=== PATIENT | male | born 1945 | race Caucasian/White ===

== ENCOUNTER 2025-05-04 15:51 | Outpatient (AMB) | payer MEDICARE, MEDICAID, SELFPAY ==
--- NOTE | 2025-05-04 15:51 | A.OFFVIS_ITS ---
Intake Visit Reasons: 7M/MCI HPI Comments Details: He has stable memory problems. Occasionally he forgets his diapers and forgets to change. Both he and his live with their daughter in [place]. Needs more help. In the last 24 months he's been noted to have progressive decline in his cognitive abilities particularly short-term memory and his personal hygiene has deteriorated somewhat and sometimes he is delusional making up stories about simple commands. His remote memory appears to be intact. He stays on most of the time and gets around with a cane. He has had no falls. He has the some bladder urgency related to prostate problem and wears an adult diapers at night. There has been some personality changes noted as well. There is no agitation or abusive behavior. Review of Systems Const Details: ?Sleep:? Difficulty getting to sleep?admits.? Difficulty maintaining sleep?admits.? Urge to move legs?denies.? Teeth grinding?denies.? Shouting or Kicking during sleep?denies.? Abnormal behavior during sleep?denies.? Excessive sleep? denies.? Snoring?admits.? Daytime sleepiness?denies.?General/Constitutional:? Change in appetite?denies.? Chills?denies.? Fatigue?denies.? Fever?denies.? Weight gain?denies.? Weight loss?denies.?Ophthalmologic:? Blurred vision?denies.? Diminished visual acuity?denies.?ENT:? Stuffiness?denies.? Decreased hearing?admits.? Dry mouth?denies.? Ear pain? denies.? Nosebleed?denies.? Ringing in the ears?denies.? Sinus pain?denies.? Sore throat?denies.? Swollen glands?denies.?Endocrine:? Cold intolerance?denies.? Excessive thirst?denies.? Frequent urination? denies.? Heat intolerance?denies.?Respiratory:? Shortness of breath?denies.? Chest pain?denies.? Cough?denies.?Breast:? Breast lump?denies.? Nipple discharge?denies.?Cardiovascular:? Chest pain at rest?denies.? Chest pain with exertion?denies.? Claudication? denies.? Dizziness?denies.? Fluid accumulation in the legs?denies.? Irregular heartbeat?denies.? Palpitations?denies.?Gastrointestinal:? Abdominal pain?denies.? Constipation?denies.? Diarrhea?denies.? Difficulty swallowing?denies.? Heartburn?denies.? Nausea?denies.? Rectal bleeding? denies.?Hematology:? Easy bruising?denies.? Prolonged bleeding?denies.?Genitourinary:? Frequent urination?denies.? Urgency?denies.? Incontinence?admits.? Erectile Dysfunction?denies.?Musculoskeletal:? Neck pain?denies.? Back pain?admits.? Muscle aches?admits.? Painful joints? admits.? Sciatica?denies.? Weakness?denies.?Podiatric:? Difficulty walking?denies.? Foot numbness?denies.?Neurologic:? Difficulty swallowing?denies.? Balance difficulty?denies.? Coordination? normal.? Difficulty speaking?denies.? Dizziness?denies.? Fainting?denies.? Gait abnormality?denies.? Headache?denies.? Loss of strength?denies.? Loss of use of extremity?denies.? Low back pain?denies.? Memory loss?admits.? Seizures?denies.? Tics?denies.? Tingling/Numbness?denies.? Transient loss of vision?denies.? Tremor?denies.?Psychiatric:? Anxiety?admits.? Auditory/visual hallucinations?denies.? Delusions?admits.? Depressed mood?admits.? Stressors?admits.? Substance abuse?denies.? Suicidal thoughts?denies.? Physical Exam Neuro Other: Neurological: Abnormal neurological findings:??MMS .? Mental Status:??alert and oriented X 1. Does not know city or state.does not know day date, month or year..? Cranial Nerves:??Pupils are equal, round and reactive to light. Fundoscopy shows normal disc bilaterally. External occular muscles are intact. Visual olivares are full, no ptosis. Face is symmetrical, no facial weakness or droop. Facial sensations are normal. Tongue protrudes in midline. Palate elevates symmetrically. Shoulder shrugging is normal..? Motor Examination:??Normal muscle tone, bulk and strength,?No atrophy or fasciculations,?No drift of the extended upper extremities,?Deep tendon reflexes are 2+?,?Plantars are flexor?.? Straight Leg Raising:??90 degrees.? Sensory Exam:??Normal light touch, temperature, pinprick, vibration and joint-position sensations?,?Rhomberg sign is absent.? Coordination:??no ataxia,?no titubation,?[id number], [id number] test and rapid alternating movements were normal.? Gait Exam:??Walks with a cane.? Cerebellar Signs:??[id number] and ghjr-lp-iice is normal,?no dysdiadochokinesia?.? Extrapyramidal System:??No tremor, rigidity with normal facial expressions,?No bradykinesia, no bradyphrenia. Normal arm swing and posture. No propulsion or retropulsion.? Speech:??Normal,?no dysphasia or dysarthria..?Mini Mental Status Exam: Level of Consciousness:??Alert.? Orientation:??Does not Know correct year, month, date, day and season, or?correct city, county and state.?.? Registration:??Able to register 3 objects.? Attention:??Serial 7's performed accurately to 93.? Recall:??Able to recall 0 out of 3 objects.? Language:??Normal spontaneous speech, fluency, repetition,naming, comprehension, reading and writing.? Total Score:??23/30.?General Examination: GENERAL APPEARANCE:??normal,?in no acute distress.? HEAD:??normocephalic,?atraumatic.? EYES:??sclera non-icteric,?conjunctiva clear.? EARS:??auditory canal clear,?tympanic membrane intact, clear.? NOSE:??no lesions.? ORAL CAVITY:??gums normal,?mucosa moist,?no lesions.? THROAT:??clear.? NECK/THYROID:??no cervical lymphadenopathy,?thyroid normal,?neck supple, full range of motion,?no carotid bruit.? SKIN:??no rashes,?no significant birthmarks.? HEART:??S1, S2 normal,?no murmurs.? LUNGS:??clear anteriorly and posteriorly.? CHEST:??no gross rib deformity,?clear to auscultation.? BACK:??normal exam of spine.? EXTREMITIES:??no edema.? PERIPHERAL PULSES:??normal.? PSYCH:??as above.? Assessment & Plan Assessment & Plan (1) Alzheimer's disease: Comment: 02/28/22 EEG- WNL CT negative Mildly impaired renal function BUN. Creat 25/1.5 . Low B12 and elevated Homocysteine. Code(s): G30.9 - Alzheimer's disease, unspecified; F02.80 - Dementia in other diseases classified elsewhere, unspecified severity, without behavioral disturbance, psychotic disturbance, mood disturbance, and anxiety Category: Medical (2) Hypertension: Code(s): I10 - Essential (primary) hypertension Category: Medical Plan continue current meds Medications: New donepezil 10 mg PO DAILY 90 tabs 3RF 90 days Coding Level of Care Code Est Pt Level 4 (44108) Diagnoses Alzheimer's disease G30.9; F02.80 Hypertension I10
--- OUTSIDE RECORDS SUMMARY | 2025-05-04 19:08 | XMS_ITS ---
Author Name [facility] Organization Unknown Care Team Organization Name Specialty Phone Email Start Date End Da te [facility] 05/28/2022 024
--- OUTSIDE RECORDS SUMMARY | 2025-05-04 19:08 | XMS_ITS | Patient Health Record ---
Author Organization [facility] Address [address] [place] [address] Care Team Providers Care Design Painter Name Role Phone ALLEN GRAHAM Primary Care Provider IsaiahmirlandeTamika darby Unavailable [phone] Allergies No Known Allergies Results Component Value Reference Range Notes Comp. Metabolic Panel [id number] Reviewed date:03/04/2025 03:10:48 PM Interpretation: Performing Lab:[facility], [address] [place] [address], [place], Phone - [phone], Director - Christiano Notes/Report: Glucose 110 70-99 mg/dL BUN 15 8-27 mg/dL Creatinine 1.18 0.76-1.27 mg/dL eGFR 63 >59 mL/min/1.73 BUN/Creatinine Ratio 13 10-24 Sodium 141 134-144 mmol/L Potassium 4.4 3.5-5.2 mmol/L Chloride 107 96-106 mmol/L Carbon Dioxide, Total 19 20-29 mmol/L Calcium 9.0 8.6-10.2 mg/dL Protein, Total 6.1 6.0-8.5 g/dL Albumin 3.7 3.8-4.8 g/dL Globulin, Total 2.4 1.5-4.5 g/dL Bilirubin, Total 1.2 0.0-1.2 mg/dL Alkaline Phosphatase 59 44-121 IU/L AST (SGOT) 19 0-40 IU/L ALT (SGPT) 15 0-44 IU/L Lipid Panel-[id number] Reviewed date:03/04/2025 03:05:38 PM Interpretation: Performing Lab:[facility] [place], [address] [facility], Phone - [phone], Director - MDMary Annedry Notes/Report: Cholesterol, Total 110 100-199 mg/dL Triglycerides 92 0-149 mg/dL HDL Cholesterol 44 >39 mg/dL VLDL Cholesterol Nino 18 5-40 mg/dL LDL Chol Calc (NIH) 48 0-99 mg/dL Albumin/Creatinine Ratio,Uri ne-[id number] Reviewed date:03/04/2025 03:06:44 PM Interpretation: Performing Lab:[facility] [place], [address] [facility], [place], Phone - [phone], Director - MDJoy Notes/Report: Creatinine, Urine 89.4 Not Estab. mg/dL Albumin, Urine 11.5 Not Estab. ug/mL Alb/Creat Ratio 13 0-29 mg/g creat Normal: 0 - 29 Moderately increased: 30 - 300 Severely increased: >300 Hemoglobin [id number] Reviewed date:03/04/2025 03:10:42 PM Interpretation: Performing Lab:[facility] [place], [address] [facility], [place], Phone - [phone], Director - MDJoy Notes/Report: Hemoglobin A1c 6.7 4.8-5.6 % . Prediabetes: 5.7 - 6.4 Diabetes: >6.4 Glycemic control for adults with diabetes: <7.0 Reason For Referral Reason Gait instability Diagnosis 1 Other abnormalities of gait and mobility (R26.89) Referral Organization [facility] Referring Provider First Name Inder Referring Provider Last Name Valdemar Referred Provider Specialty Physical The rapist General Notes Referral faxed to [facility]. Please contact the patient to schedule., Kassidy Yanez 05/10/2024 10:06:34 AM > Referral Priority Routine Reason please evaluate and treat Diagnosis 1 Unspecified hearing loss, unspecified ear (H91.90) Referral Organization [facility] Referring Provider First Name Tamika Referring Provider Last Name Veronica Referred Provider Specialty Ear, nose an d throat surgeon General Notes REFERRAL WAS FAXED [facility]. PLEASE CONTACT PATIENT FOR SCHEDULING.Jonah Rashida 08/05/2024 04:29:46 PM > Referral Priority Urgent Medications Medication SIG (Take, Route, Frequency, Duration) Notes Start Date End Date Status Dextroamphetamine Sulfate ER 5 MG as directed Orally Not-Takin g Gabapentin 300 MG TAKE 1 CAPSULE BY MOUTH THREE TIMES A DAY; Duration: 90 Active hydrOXYzine HCl 25 MG TAKE 1 TABLET BY MOUTH EVERY 8 HOURS as NEEDED FOR 30 DAYS every 8 hrs; Duration: 90 days Active Pantoprazole Sodium 20 MG TAKE 1 TABLET BY MOUTH EVERY DAY; Duration: 90 Not-Taking FreeStyle Ryan 3 Plus Sensor - as directed DX: E11.8; Duration: 30 days 07/06/2024 Active Lisinopril 2.5 MG TAKE 1 TABLET BY MOUTH EVERY DAY FOR 30 DAYS; Duration: 90 Not-Taking metFORMIN HCl 500 MG TAKE 1 TABLET BY MOUTH TWICE A DAY WITH A MEAL FOR 90 DAYS; Duration: 90 Not-Taking FreeStyle Lite Test - 1 strip Dx: E11.9 In Vitro once a day; Duration: 90 days 02/26/2021 Active FreeStyle Lancets - 1 lancet once a day; Duration: 90 days 02/26/2021 Not-Taking Diclofenac Sodium 1 % as directed Externally Active FreeStyle Rayn 3 Plus Sensor - Check blood sugars once daily; DX E11.8; Duration: 30 days 08/10/2024 Active Clotrimazole 1 % 1 application Externally Twice a day; Duration: 28 day(s) 02/18/2022 Not-Taking Atorvastatin Calcium 20 MG TAKE 1 TABLET BY MOUTH EVERY DAY; Duration: 90 Active traMADol HCl 50 MG 1 tablet as needed Orally Once a day Active Prazosin HCl 1 MG TAKE 1 CAPSULE BY MOUTH EVERYDAY AT BEDTIME; Duration: 90 Active Donepezil HCl 5 MG TAKE 1 TABLET BY MOUTH EVERY DAY AT BEDTIME FOR 30 DAYS; Duration: 90 Active Tamsulosin HCl 0.4 MG 1 capsule Orally O nce a day Not-Taking Venlafaxine HCl 37.5 MG 1 tablet with fo od Orally Once a day Active FreeStyle Lite - use to check blood sugars once a day; DX: E11.8; Duration: 30 days 02/26/2021 Active Acetaminophen 500 MG 1 capsule as needed Orally every 6 hrs; Duration: 30 days Not-Taking Finasteride 5 MG TAKE 1 TABLET BY MOUTH EVERY DAY; Duration: 90 Active Vitamin D3 25 MCG (1000 UT) TAKE 1 TABLE T BY MOUTH EVERY DAY; Duration: 90 Active Folic Acid 1 MG 1 tablet Orally Once a day Not-Taking Immunizations Vaccine Route Administration Date Status Comme nts COVID 19 Pfizer Unknown 10/03/2020 Administered COVID 19 Pfizer Unknown 10/24/2020 Administered COVID 19 Pfizer Unknown 04/24/2021 Administered COVID-19 Pfizer Unknown 06/27/2022 Administered Flu High-Dose Unknown 07/02/2021 Administered Fluzone High Dose 90296 IM Intramuscular 05/06/2024 Administered High Dose Fluzone +65 Unknown 05/15/2022 Administered G iven at [facility] Influenza, high dose seasonal Unknown 04/26/2019 Administered Pneumococcal conjugate PCV 13 Unknown 04/26/2019 Administered Social History Tobacco Use: Social History Observation Description Date Details (start date - stop date) Never Smoker NA - NA Tobacco Use/Smoking Question Answer Notes Are you a nonsmoker Alcohol Screen (Audit-C) Question Answer Notes Did you have a drink containing alcohol in the p ast year? No Points 0 Interpretation Negative Problems Problem Type SNOMED Code ICD Code Onset Dates Problem Status W/U Status Risk Notes Problem Diabetic neuropathy (494959765) Diabetes mellitus due to underlying condition with diabetic neuropathy, unspecified (E08.40) Active confirmed Problem Disorder due to type 2 diabetes mellitus (340061217) Type 2 diabetes mellitus with unspecified complications (E11.8) Active confirmed Problem Mixed hyperlipidemia (255724415) Mixed hyperlipidemia (E78.2) Active confirmed Problem Hearing loss (31047098) Unspecified hearing loss, unspecified ear (H91.90) Active confirmed Problem Essential hypertension (03564042) Essential (primary) hypertension (I10) Active confirmed Problem Gastro-esophageal reflux disease without esophagitis (337206293) Gastro-esophageal reflux disease without esophagitis (K21.9) Active confirmed Problem Atopic dermatitis (14112420) Atopic dermatitis, unspecified (L20.9) Active confirmed Problem Osteoarthritis (169669121) Polyosteoarthriti s, unspecified (M15.9) Active confirmed Problem Backache (699418177) Dorsalgia, unspecified (M54.9) Active confirmed Problem Urinary incontinence (590944808) Other specified urinary incontinence (N39.498) Active confirmed Problem Abnormal gait (13486039) Other abnormalities of gait and mobility (R26.89) Active confirmed Problem Attention deficit hyperactivity disorder, predominantly inattentive type (disorder) (83403461) Attention and concentration deficit (R41.840) Active confirmed Problem Fall () Unspecified fall , initial encounter (W19.XXXA) Active confirmed Problem Benign prostatic hypertrophy without outflow obstruction (035254977) Benign prostatic hyperplasia without lower urinary tract symptoms (N40.0) Active confirmed Problem Amnesia (25311242) Complaints of memory disturbance (R41.3) Active confirmed Vital Signs Heart Rate 77 /min 02/10/2025 Temperature 96.9 degrees Fahrenheit 02/10/2025 Oximetry 97 % 02/10/2025 Blood pressure diastolic 72 mm Hg 02/10/2025 Height 5'3 in 02/10/2025 Blood pressure systolic 118 mm Hg 02/10/2025 Weight 178.2 lbs 02/10/2025 BMI 31.56 kg/m2 02/10/2025 Encounters Encounter Location Date Provider Diagnosis [facility] [address] [place] [address] 05/06/2024 Tamika Martin Encounter for genera l adult medical examination without abnormal findings Z00.00 ; Diabetes mellitus due to underlying condition with diabetic neuropathy, unspecified E08.40 ; Frequency of micturition R35.0 ; Essential (primary) hypertension I10 ; Hyperlipidemia, unspecified E78.5 ; Complaints of memory disturbance R41.3 ; Other specified urinary incontinence N39.498 ; Benign prostatic hyperplasia without lower urinary tract symptoms N40.0 ; Fatigue, unspecified type R53.83 ; Tinea unguium B35.1 ; Polyosteoarthritis, unspecified M15.9 ; Encounter for immunization Z23 ; Encounter for screening for osteoporosis Z13.820 and Encounter for screening for malignant neoplasm of colon Z12.11 [facility] [address] [place] [address] 08/05/2024 Tamika Martin Diabetes mellitus du e to underlying condition with diabetic neuropathy, unspecified E08.40 ; Essential (primary) hypertension I10 ; Hyperlipidemia, unspecified E78.5 ; Complaints of memory disturbance R41.3 ; Benign prostatic hyperplasia without lower urinary tract symptoms N40.0 ; Polyosteoarthritis, unspecified M15.9 and Unspecified hearing loss, unspecified ear H91.90 [facility] [address] [place] [address] 02/10/2025 [facility]ILL[facility]UL Mixed hyperlipidemia E78.2 ; Diabetes mellitus due to underlying condition with diabetic neuropathy, unspecified E08.40 ; Gastro-esophageal reflux disease without esophagitis K21.9 ; Benign prostatic hyperplasia without lower urinary tract symptoms N40.0 ; Polyosteoarthritis, unspecified M15.9 and Complaints of memory disturbance R41.[address] [place] [address] 05/06/2024 [facility] Encounter for screen ing for malignant neoplasm of colon Z12.11 [facility] [address] [place] [address] 05/10/[address] [place] [address] 06/14/[address] [place] [address] 07/01/[address] [place] [address] 08/05/[address] [place] [address] 08/05/[address] [place] [address] 08/09/[address] [place] [address] 08/10/[address] [place] [address] 08/12/[address] [place] [address] 08/17/2024 [facility] Hyperlipidemia, mixe d E78.[address] [place] [address] 12/09/2024 Tamika Martin [facility] [address] [place] [address] 02/10/2025 ALLEN GRAHAM [facility] [address] [place] [address] 03/07/2025 ALLEN GRAHAM Assessments Encounter Date Diagnosis (ICD Code) Assessment Notes Treatment Notes Treatment Clinical Notes Section Notes 05/06/2024 Diabetes mellitus due to underlying condition with diabetic neuropathy, unspecified (ICD-10 - E08.40) Mr. Boggs is a 77-year-old [place]ic-speaking gentleman with attention deficit disorder, hyperlipidemia, DM type II, BPH and sees Dr. Adrian, osteoarthritis, degenerative disc disease here for Medicare annual wellness visit. Plan is as follows: Type II diabetes mellitus with neuropathy. -Last A1c 5.6. He is on right medications. He has not seen his polygraph examiner in the past 1 year. Foot care discussed. - Refilled gabapentin. -EKG was done today which was normal sinus rhythm at [address] with no acute ST or T wave changes. Normal intervals. First degree AV block. - I will first assess A1c, and based on I will adjust the dosage of metformin. Increased urinary frequency, UA is negative, could be related increase in sugar especially that patient has not been taking Metformin. He is currently on tamsulosin and he has been out of refill from the finasteride. Medication refilled. Hypertension. - Per son and patient he has not taken his lisinopril For a couple of months now as he did not have any refills while he was in [place]. Blood pressure in office is within normal limits. Patient is given a blood pressure monitor if we notice that the blood pressure is elevated then we will Consider resuming on low-dose lisinopril. Advised hydration, reduce salt intake, exercising and weight loss. Check comp Hyperlipidemia. -Last lipid panel within normal limits. Continue Atorvastatin 10 MG at night. Check lipid panel Complaints of memory disturbance. - Memory is declining slowly. Multiple reasons. It can be secondary to vascular dementia Alzheimer's dementia. Brain stimulation exercises recommended. - Recommended follow-up with Dr. Schwartz. Incontinence of urine/BPH. -He uses Depends. Continue current regimen and he sees urology. Recommended follow-up with Dr. Adrian. Generalized anxiety/Major depressive disorder. - According to the family is getting worse with time. Referred patient to therapy. He has an appointment with Dr. Nagel Next month. ADD. -He is stable on Dextroamphetamine ER 5 [address] by Dr. Nagel. Gait instability. -He uses a cane to walk and fall risk discussed.Referred to physical therapy. Fatigue: - Differential diagnoses depression, elevated A1c, thyroid disease, anemia, vitamin D deficiency. Ordered blood work to rule out underlying diseases. Tinea unguium - Referred to podiatry. Probably osteoarthritis of the knees bilateral - Get intraarticular injections in BL knees at [facility]. To follow-up. Screening for osteoporosis: -Order DEXA Screening for colon cancer: - He does not recall when the last time he had it done, he does not result. We ordered guarded based on the results we will evaluate if he needs a colonoscopy or not. Adult Foster Care. He uses a cane to walk. He needs help with transferring, showering, toileting, dressing and daily activities like transportation, grocery shopping, laundry, going to medical appointments, picking up prescription and medication supervision. Dental screening. He sees dentist regularly. Vision screening: recommended yearly visits Dentist: recommended regular visits He is up-to-date on vaccinations. Flu vaccine is administered today. Advance directive. He is on full code and his HCP is Cedrick Villanueva. Blood work reviewed with patient and questions answered. 05/06/2024 Encounter for general adult medical examination without abnormal findings (ICD-10 - Z00.00) Mr. Boggs is a 77-year-old [place]ic-speaking gentleman with attention deficit disorder, hyperlipidemia, DM type II, BPH and sees Dr. Adrian, osteoarthritis, degenerative disc disease here for Medicare annual wellness visit. Plan is as follows: Type II diabetes mellitus with neuropathy. -Last A1c 5.6. He is on right medications. He has not seen his polygraph examiner in the past 1 year. Foot care discussed. - Refilled gabapentin. -EKG was done today which was normal sinus rhythm at 66 bpm with no acute ST or T wave changes. Normal intervals. First degree AV block. - I will first assess A1c, and based on I will adjust the dosage of metformin. Increased urinary frequency, UA is negative, could be related increase in sugar especially that patient has not been taking Metformin. He is currently on tamsulosin and he has been out of refill from the finasteride. Medication refilled. Hypertension. - Per son and patient he has not taken his lisinopril For a couple of months now as he did not have any refills while he was in [place]. Blood pressure in office is within normal limits. Patient is given a blood pressure monitor if we notice that the blood pressure is elevated then we will Consider resuming on low-dose lisinopril. Advised hydration, reduce salt intake, exercising and weight loss. Check comp Hyperlipidemia. -Last lipid panel within normal limits. Continue Atorvastatin 10 MG at night. Check lipid panel Complaints of memory disturbance. - Memory is declining slowly. Multiple reasons. It can be secondary to vascular dementia Alzheimer's dementia. Brain stimulation exercises recommended. - Recommended follow-up with Dr. Schwartz. Incontinence of urine/BPH. -He uses Depends. Continue current regimen and he sees urology. Recommended follow-up with Dr. Adrian. Generalized anxiety/Major depressive disorder. - According to the family is getting worse with time. Referred patient to therapy. He has an appointment with Dr. Nagel Next month. ADD. -He is stable on Dextroamphetamine ER [address] Dr. Nagel. Gait instability. -He uses a cane to walk and fall risk discussed.Referred to physical therapy. Fatigue: - Differential diagnoses depression, elevated A1c, thyroid disease, anemia, vitamin D deficiency. Ordered blood work to rule out underlying diseases. Tinea unguium - Referred to podiatry. Probably osteoarthritis of the knees bilateral - Get intraarticular injections in BL knees at [facility]. To follow-up. Screening for osteoporosis: -Order DEXA Screening for colon cancer: - He does not recall when the last time he had it done, he does not result. We ordered guarded based on the results we will evaluate if he needs a colonoscopy or not. Adult Foster Care. He uses a cane to walk. He needs help with transferring, showering, toileting, dressing and daily activities like transportation, grocery shopping, laundry, going to medical appointments, picking up prescription and medication supervision. Dental screening. He sees dentist regularly. Vision screening: recommended yearly visits Dentist: recommended regular visits He is up-to-date on vaccinations. Flu vaccine is administered today. Advance directive. He is on full code and his HCP is Cedrick Villanueva. Blood work reviewed with patient and questions answered. 05/06/2024 Encounter for screening for malignant neoplasm of colon (ICD-10 - Z12.11) 08/05/2024 Diabetes mellitus due to underlying condition with diabetic neuropathy, unspecified (ICD-10 - E08.40) Mr. Boggs is a 79-year-old [place]-speaking gentleman with attention deficit disorder, hyperlipidemia, DM type II, BPH and sees Dr. Adrian, osteoarthritis, degenerative disc disease here for follow-up Plan is as follows: Type II diabetes mellitus with neuropathy. -Last A1c 5.6. He is on right medications. He has not seen his polygraph examiner in the past 1 year. Foot care discussed. - I will first assess A1c, and based on I will adjust the dosage of metformin. Hypertension. - Per son and patient he has not taken his lisinopril For a couple of months now as he did not have any refills while he was in [place]. Blood pressure in office is within normal limits. Patient is given a blood pressure monitor if we notice that the blood pressure is elevated then we will Consider resuming on low-dose lisinopril. Advised hydration, reduce salt intake, exercising and weight loss. Check comp Hyperlipidemia. -Last lipid panel within normal limits. Continue Atorvastatin 10 MG at night. Check lipid panel Complaints of memory disturbance. - Memory is declining slowly. Multiple reasons. It can be secondary to vascular dementia Alzheimer's dementia. Brain stimulation exercises recommended. - Recommended follow-up with Dr. Schwartz. BPH. -He uses diapers. Continue current regimen and he sees urology. Recommended follow-up with Dr. Adrian. ADD. RUMA/MDD -He is stable on Dextroamphetamine ER [address] Nagel. Gait instability. -He uses a cane to walk.Currently in physical therapy. Fatigue: - Differential diagnoses depression, elevated A1c, thyroid disease, anemia, vitamin D deficiency. Ordered blood work to rule out underlying diseases. 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 Hearing loss: - Referred to ENT for audiology testing. Blood work reviewed with patient and questions answered. 08/05/2024 Essential (primary) hypertension (ICD-10 - I10) Mr. Boggs is a 79-year-old [place]ic-speaking gentleman with attention deficit disorder, hyperlipidemia, DM type II, BPH and sees Dr. Adrian, osteoarthritis, degenerative disc disease here for follow-up Plan is as follows: Type II diabetes mellitus with neuropathy. -Last A1c 5.6. He is on right medications. He has not seen his polygraph examiner in the past 1 year. Foot care discussed. - I will first assess A1c, and based on I will adjust the dosage of metformin. Hypertension. - Per son and patient he has not taken his lisinopril For a couple of months now as he did not have any refills while he was in [place]. Blood pressure in office is within normal limits. Patient is given a blood pressure monitor if we notice that the blood pressure is elevated then we will Consider resuming on low-dose lisinopril. Advised hydration, reduce salt intake, exercising and weight loss. Check comp Hyperlipidemia. -Last lipid panel within normal limits. Continue Atorvastatin 10 MG at night. Check lipid panel Complaints of memory disturbance. - Memory is declining slowly. Multiple reasons. It can be secondary to vascular dementia Alzheimer's dementia. Brain stimulation exercises recommended. - Recommended follow-up with Dr. Schwartz. BPH. -He uses diapers. Continue current regimen and he sees urology. Recommended follow-up with Dr. Adrian. ADD. RUMA/MDD -He is stable on Dextroamphetamine ER 5 [address] Dr. Nagel. Gait instability. -He uses a cane to walk.Currently in physical therapy. Fatigue: - Differential diagnoses depression, elevated A1c, thyroid disease, anemia, vitamin D deficiency. Ordered blood work to rule out underlying diseases. 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 Hearing loss: - Referred to ENT for audiology testing. Blood work reviewed with patient and questions answered. 08/17/2024 Hyperlipidemia, mixed (ICD-10 - E78.2) 02/10/2025 Diabetes mellitus due to underlying condition with diabetic neuropathy, unspecified (ICD-10 - E08.40) Mr. Boggs is a 79-year-old [place]ic-speaking gentleman with attention deficit disorder, hyperlipidemia, DM type II, BPH and sees Dr. Adrian, osteoarthritis, degenerative disc disease here for follow-up. He is here today accompanied by his son who interpret for him. Diabetes mellitus type 2 with diabetic neuropathy. His last A1c was 6.6 and he is not on any medications at this point in time. He has seen polygraph examiner in the past 1 year. His renal function and electrolytes are normal. Foot care discussed with the patient. He is on atorvastatin 20 mg daily. Mixed hyperlipidemia. Continue on atorvastatin 20 mg daily and last lipid panel was within reasonable limits. BPH. He follows up with urologist and he is on finasteride 5 mg daily. Generalized anxiety disorder/depression . He follows with psychiatry currently on Effexor 37.5 mg and he stable. Insomnia. He takes hydroxyzine 25 mg along with prazosin 1 mg. Short-term memory loss. He is on Aricept 5 mg daily which is helping and he stable. Diabetic neuropathy. He is on gabapentin 300 mg and he also takes tramadol when necessary. Osteoarthritis bilateral knee joints. He goes to orthopedics for intra-articular injection. He is not interested in knee replacement at this point in time. 02/10/2025 Mixed hyperlipidemia (ICD-10 - E78.2) Mr. Boggs is a 79-year-old [place]ic-speaking gentleman with attention deficit disorder, hyperlipidemia, DM type II, BPH and sees Dr. Adrian, osteoarthritis, degenerative disc disease here for follow-up. He is here today accompanied by his son who interpret for him. Diabetes mellitus type 2 with diabetic neuropathy. His last A1c was 6.6 and he is not on any medications at this point in time. He has seen polygraph examiner in the past 1 year. His renal function and electrolytes are normal. Foot care discussed with the patient. He is on atorvastatin 20 mg daily. Mixed hyperlipidemia. Continue on atorvastatin 20 mg daily and last lipid panel was within reasonable limits. BPH. He follows up with urologist and he is on finasteride 5 mg daily. Generalized anxiety disorder/depression . He follows with psychiatry currently on Effexor 37.5 mg and he stable. Insomnia. He takes hydroxyzine 25 mg along with prazosin 1 mg. Short-term memory loss. He is on Aricept 5 mg daily which is helping and he stable. Diabetic neuropathy. He is on gabapentin 300 mg and he also takes tramadol when necessary. Osteoarthritis bilateral knee joints. He goes to orthopedics for intra-articular injection. He is not interested in knee replacement at this point in time. 02/10/2025 Gastro-esophageal reflux disease without esophagitis (ICD-10 - K21.9) Mr. Boggs is a 79-year-old [place]ic-speaking gentleman with attention deficit disorder, hyperlipidemia, DM type II, BPH and sees Dr. Adrian, osteoarthritis, degenerative disc disease here for follow-up. He is here today accompanied by his son who interpret for him. Diabetes mellitus type 2 with diabetic neuropathy. His last A1c was 6.6 and he is not on any medications at this point in time. He has seen polygraph examiner in the past 1 year. His renal function and electrolytes are normal. Foot care discussed with the patient. He is on atorvastatin 20 mg daily. Mixed hyperlipidemia. Continue on atorvastatin 20 mg daily and last lipid panel was within reasonable limits. BPH. He follows up with urologist and he is on finasteride 5 mg daily. Generalized anxiety disorder/depression . He follows with psychiatry currently on Effexor 37.5 mg and he stable. Insomnia. He takes hydroxyzine 25 mg along with prazosin 1 mg. Short-term memory loss. He is on Aricept 5 mg daily which is helping and he stable. Diabetic neuropathy. He is on gabapentin 300 mg and he also takes tramadol when necessary. Osteoarthritis bilateral knee joints. He goes to orthopedics for intra-articular injection. He is not interested in knee replacement at this point in time. 08/05/2024 Hyperlipidemia, unspecified (ICD-10 - E78.5) Mr. Boggs is a 79-year-old [place]-speaking gentleman with attention deficit disorder, hyperlipidemia, DM type II, BPH and sees Dr. Adrian, osteoarthritis, degenerative disc disease here for follow-up Plan is as follows: Type II diabetes mellitus with neuropathy. -Last A1c 5.6. He is on right medications. He has not seen his polygraph examiner in the past 1 year. Foot care discussed. - I will first assess A1c, and based on I will adjust the dosage of metformin. Hypertension. - Per son and patient he has not taken his lisinopril For a couple of months now as he did not have any refills while he was in [place]. Blood pressure in office is within normal limits. Patient is given a blood pressure monitor if we notice that the blood pressure is elevated then we will Consider resuming on low-dose lisinopril. Advised hydration, reduce salt intake, exercising and weight loss. Check comp Hyperlipidemia. -Last lipid panel within normal limits. Continue Atorvastatin 10 MG at night. Check lipid panel Complaints of memory disturbance. - Memory is declining slowly. Multiple reasons. It can be secondary to vascular dementia Alzheimer's dementia. Brain stimulation exercises recommended. - Recommended follow-up with Dr. Schwartz. BPH. -He uses diapers. Continue current regimen and he sees urology. Recommended follow-up with Dr. Adrian. ADD. RUMA/MDD -He is stable on Dextroamphetamine ER 5 MG daily[address] by Dr. Nagel. Gait instability. -He uses a cane to walk.Currently in physical therapy. Fatigue: - Differential diagnoses depression, elevated A1c, thyroid disease, anemia, vitamin D deficiency. Ordered blood work to rule out underlying diseases. Pending BW Probably osteoarthritis of the knees bilateral - Gets intraarticular injections in BL knees at [facility]. Hearing loss: - Referred to ENT for audiology testing. Blood work reviewed with patient and questions answered. 05/06/2024 Frequency of micturition (ICD-10 - R35.0) Mr. Boggs is a 77-year-old [place]-speaking gentleman with attention deficit disorder, hyperlipidemia, DM type II, BPH and sees Dr. Adrian, osteoarthritis, degenerative disc disease here for Medicare annual wellness visit. Plan is as follows: Type II diabetes mellitus with neuropathy. -Last A1c 5.6. He is on right medications. He has not seen his polygraph examiner in the past 1 year. Foot care discussed. - Refilled gabapentin. -EKG was done today which was normal sinus rhythm at [address] with no acute [address] or T wave changes. Normal intervals. First degree AV block. - I will first assess A1c, and based on I will adjust the dosage of metformin. Increased urinary frequency, UA is negative, could be related increase in sugar especially that patient has not been taking Metformin. He is currently on tamsulosin and he has been out of refill from the finasteride. Medication refilled. Hypertension. - Per son and patient he has not taken his lisinopril For a couple of months now as he did not have any refills while he was in [place]. Blood pressure in office is within normal limits. Patient is given a blood pressure monitor if we notice that the blood pressure is elevated then we will Consider resuming on low-dose lisinopril. Advised hydration, reduce salt intake, exercising and weight loss. Check comp Hyperlipidemia. -Last lipid panel within normal limits. Continue Atorvastatin 10 MG at night. Check lipid panel Complaints of memory disturbance. - Memory is declining slowly. Multiple reasons. It can be secondary to vascular dementia Alzheimer's dementia. Brain stimulation exercises recommended. - Recommended follow-up with Dr. Schwartz. Incontinence of urine/BPH. -He uses Depends. Continue current regimen and he sees urology. Recommended follow-up with Dr. Adrian. Generalized anxiety/Major depressive disorder. - According to the family is getting worse with time. Referred patient to therapy. He has an appointment with Dr. Nagel Next month. ADD. -He is stable on Dextroamphetamine ER 5 MG daily[address] by Dr. Nagel. Gait instability. -He uses a cane to walk and fall risk discussed.Referred to physical therapy. Fatigue: - Differential diagnoses depression, elevated A1c, thyroid disease, anemia, vitamin D deficiency. Ordered blood work to rule out underlying diseases. Tinea unguium - Referred to podiatry. Probably osteoarthritis of the knees bilateral - Get intraarticular injections in BL knees at [facility]. To follow-up. Screening for osteoporosis: -Order DEXA Screening for colon cancer: - He does not recall when the last time he had it done, he does not result. We ordered guarded based on the results we will evaluate if he needs a colonoscopy or not. Adult Foster [facility]. He uses a cane to walk. He needs help with transferring, showering, toileting, dressing and daily activities like transportation, grocery shopping, laundry, going to medical appointments, picking up prescription and medication supervision. Dental screening. He sees dentist regularly. Vision screening: recommended yearly visits Dentist: recommended regular visits He is up-to-date on vaccinations. Flu vaccine is administered today. Advance directive. He is on full code and his HCP is Cedrick Villanueva. Blood work reviewed with patient and questions answered. 05/06/2024 Essential (primary) hypertension (ICD-10 - I10) Mr. Boggs is a 77-year-old [place]-speaking gentleman with attention deficit disorder, hyperlipidemia, DM type II, BPH and sees Dr. Adrian, osteoarthritis, degenerative disc disease here for Medicare annual wellness visit. Plan is as follows: Type II diabetes mellitus with neuropathy. -Last A1c 5.6. He is on right medications. He has not seen his polygraph examiner in the past 1 year. Foot care discussed. - Refilled gabapentin. -EKG was done today which was normal sinus rhythm at [address] with no acute [address] or T wave changes. Normal intervals. First degree AV block. - I will first assess A1c, and based on I will adjust the dosage of metformin. Increased urinary frequency, UA is negative, could be related increase in sugar especially that patient has not been taking Metformin. He is currently on tamsulosin and he has been out of refill from the finasteride. Medication refilled. Hypertension. - Per son and patient he has not taken his lisinopril For a couple of months now as he did not have any refills while he was in [facility]. Blood pressure in office is within normal limits. Patient is given a blood pressure monitor if we notice that the blood pressure is elevated then we will Consider resuming on low-dose lisinopril. Advised hydration, reduce salt intake, exercising and weight loss. Check comp Hyperlipidemia. -Last lipid panel within normal limits. Continue Atorvastatin 10 MG at night. Check lipid panel Complaints of memory disturbance. - Memory is declining slowly. Multiple reasons. It can be secondary to vascular dementia Alzheimer's dementia. Brain stimulation exercises recommended. - Recommended follow-up with Dr. Schwartz. Incontinence of urine/BPH. -He uses Depends. Continue current regimen and he sees urology. Recommended follow-up with Dr. Adrian. Generalized anxiety/Major depressive disorder. - According to the family is getting worse with time. Referred patient to therapy. He has an appointment with Dr. Nagel Next month. ADD. -He is stable on Dextroamphetamine ER 5 MG daily[address] by Dr. Nagel. Gait instability. -He uses a cane to walk and fall risk discussed.Referred to physical therapy. Fatigue: - Differential diagnoses depression, elevated A1c, thyroid disease, anemia, vitamin D deficiency. Ordered blood work to rule out underlying diseases. Tinea unguium - Referred to podiatry. Probably osteoarthritis of the knees bilateral - Get intraarticular injections in BL knees at [facility]. To follow-up. Screening for osteoporosis: -Order DEXA Screening for colon cancer: - He does not recall when the last time he had it done, he does not result. We ordered guarded based on the results we will evaluate if he needs a colonoscopy or not. Adult Foster [facility]. He uses a cane to walk. He needs help with transferring, showering, toileting, dressing and daily activities like transportation, grocery shopping, laundry, going to medical appointments, picking up prescription and medication supervision. Dental screening. He sees dentist regularly. Vision screening: recommended yearly visits Dentist: recommended regular visits He is up-to-date on vaccinations. Flu vaccine is administered today. Advance directive. He is on full code and his HCP is Cedrick Villanueva. Blood work reviewed with patient and questions answered. 08/05/2024 Complaints of memory disturbance (ICD-10 - R41.3) Mr. Boggs is a 79-year-old [place]-speaking gentleman with attention deficit disorder, hyperlipidemia, DM type II, BPH and sees Dr. Adrian, osteoarthritis, degenerative disc disease here for follow-up Plan is as follows: Type II diabetes mellitus with neuropathy. -Last A1c 5.6. He is on right medications. He has not seen his polygraph examiner in the past 1 year. Foot care discussed. - I will first assess A1c, and based on I will adjust the dosage of metformin. Hypertension. - Per son and patient he has not taken his lisinopril For a couple of months now as he did not have any refills while he was in [place]. Blood pressure in office is within normal limits. Patient is given a blood pressure monitor if we notice that the blood pressure is elevated then we will Consider resuming on low-dose lisinopril. Advised hydration, reduce salt intake, exercising and weight loss. Check comp Hyperlipidemia. -Last lipid panel within normal limits. Continue Atorvastatin 10 MG at night. Check lipid panel Complaints of memory disturbance. - Memory is declining slowly. Multiple reasons. It can be secondary to vascular dementia Alzheimer's dementia. Brain stimulation exercises recommended. - Recommended follow-up with Dr. Schwartz. BPH. -He uses diapers. Continue current regimen and he sees urology. Recommended follow-up with Dr. Adrian. ADD. RUMA/MDD -He is stable on Dextroamphetamine ER 5 MG daily[address] Dr. Nagel. Gait instability. -He uses a cane to walk.Currently in physical therapy. Fatigue: - Differential diagnoses depression, elevated A1c, thyroid disease, anemia, vitamin D deficiency. Ordered blood work to rule out underlying diseases. 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 Hearing loss: - Referred to ENT for audiology testing. Blood work reviewed with patient and questions answered. 02/10/2025 Benign prostatic hyperplasia without lower urinary tract symptoms (ICD-10 - N40.0) Mr. Boggs is a 79-year-old [place]-speaking gentleman with attention deficit disorder, hyperlipidemia, DM type II, BPH and sees Dr. Adrian, osteoarthritis, degenerative disc disease here for follow-up. He is here today accompanied by his son who interpret for him. Diabetes mellitus type 2 with diabetic neuropathy. His last A1c was 6.6 and he is not on any medications at this point in time. He has seen polygraph examiner in the past 1 year. His renal function and electrolytes are normal. Foot care discussed with the patient. He is on atorvastatin 20 mg daily. Mixed hyperlipidemia. Continue on atorvastatin 20 mg daily and last lipid panel was within reasonable limits. BPH. He follows up with urologist and he is on finasteride 5 mg daily. Generalized anxiety disorder/depression . He follows with psychiatry currently on Effexor 37.5 mg and he stable. Insomnia. He takes hydroxyzine 25 mg along with prazosin 1 mg. Short-term memory loss. He is on Aricept 5 mg daily which is helping and he stable. Diabetic neuropathy. He is on gabapentin 300 mg and he also takes tramadol when necessary. Osteoarthritis bilateral knee joints. He goes to orthopedics for intra-articular injection. He is not interested in knee replacement at this point in time. 02/10/2025 Polyosteoarthriti s, unspecified (ICD-10 - M15.9) Mr. Boggs is a 79-year-old [place]-speaking gentleman with attention deficit disorder, hyperlipidemia, DM type II, BPH and sees Dr. Adrian, osteoarthritis, degenerative disc disease here for follow-up. He is here today accompanied by his son who interpret for him. Diabetes mellitus type 2 with diabetic neuropathy. His last A1c was 6.6 and he is not on any medications at this point in time. He has seen polygraph examiner in the past 1 year. His renal function and electrolytes are normal. Foot care discussed with the patient. He is on atorvastatin 20 mg daily. Mixed hyperlipidemia. Continue on atorvastatin 20 mg daily and last lipid panel was within reasonable limits. BPH. He follows up with urologist and he is on finasteride 5 mg daily. Generalized anxiety disorder/depression . He follows with psychiatry currently on Effexor 37.5 mg and he stable. Insomnia. He takes hydroxyzine 25 mg along with prazosin 1 mg. Short-term memory loss. He is on Aricept 5 mg daily which is helping and he stable. Diabetic neuropathy. He is on gabapentin 300 mg and he also takes tramadol when necessary. Osteoarthritis bilateral knee joints. He goes to orthopedics for intra-articular injection. He is not interested in knee replacement at this point in time. 08/05/2024 Benign prostatic hyperplasia without lower urinary tract symptoms (ICD-10 - N40.0) Mr. Boggs is a 79-year-old [place]-speaking gentleman with attention deficit disorder, hyperlipidemia, DM type II, BPH and sees Dr. Adrian, osteoarthritis, degenerative disc disease here for follow-up Plan is as follows: Type II diabetes mellitus with neuropathy. -Last A1c 5.6. He is on right medications. He has not seen his polygraph examiner in the past 1 year. Foot care discussed. - I will first assess A1c, and based on I will adjust the dosage of metformin. Hypertension. - Per son and patient he has not taken his lisinopril For a couple of months now as he did not have any refills while he was in [place]. Blood pressure in office is within normal limits. Patient is given a blood pressure monitor if we notice that the blood pressure is elevated then we will Consider resuming on low-dose lisinopril. Advised hydration, reduce salt intake, exercising and weight loss. Check comp Hyperlipidemia. -Last lipid panel within normal limits. Continue Atorvastatin 10 MG at night. Check lipid panel Complaints of memory disturbance. - Memory is declining slowly. Multiple reasons. It can be secondary to vascular dementia Alzheimer's dementia. Brain stimulation exercises recommended. - Recommended follow-up with Dr. Schwartz. BPH. -He uses diapers. Continue current regimen and he sees urology. Recommended follow-up with Dr. Adrian. ADD. RUMA/MDD -He is stable on Dextroamphetamine ER 5 MG daily[address] Dr. Nagel. Gait instability. -He uses a cane to walk.Currently in physical therapy. Fatigue: - Differential diagnoses depression, elevated A1c, thyroid disease, anemia, vitamin D deficiency. Ordered blood work to rule out underlying diseases. 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 Hearing loss: - Referred to ENT for audiology testing. Blood work reviewed with patient and questions answered. 05/06/2024 Hyperlipidemia, unspecified (ICD-10 - E78.5) Mr. Boggs is a 77-year-old [place]-speaking gentleman with attention deficit disorder, hyperlipidemia, DM type II, BPH and sees Dr. Adrian, osteoarthritis, degenerative disc disease here for Medicare annual wellness visit. Plan is as follows: Type II diabetes mellitus with neuropathy. -Last A1c 5.6. He is on right medications. He has not seen his polygraph examiner in the past 1 year. Foot care discussed. - Refilled gabapentin. -EKG was done today which was normal sinus rhythm at [address] with no acute [address] or T wave changes. Normal intervals. First degree AV block. - I will first assess A1c, and based on I will adjust the dosage of metformin. Increased urinary frequency, UA is negative, could be related increase in sugar especially that patient has not been taking Metformin. He is currently on tamsulosin and he has been out of refill from the finasteride. Medication refilled. Hypertension. - Per son and patient he has not taken his lisinopril For a couple of months now as he did not have any refills while he was in [place]. Blood pressure in office is within normal limits. Patient is given a blood pressure monitor if we notice that the blood pressure is elevated then we will Consider resuming on low-dose lisinopril. Advised hydration, reduce salt intake, exercising and weight loss. Check comp Hyperlipidemia. -Last lipid panel within normal limits. Continue Atorvastatin 10 MG at night. Check lipid panel Complaints of memory disturbance. - Memory is declining slowly. Multiple reasons. It can be secondary to vascular dementia Alzheimer's dementia. Brain stimulation exercises recommended. - Recommended follow-up with Dr. Schwartz. Incontinence of urine/BPH. -He uses Depends. Continue current regimen and he sees urology. Recommended follow-up with Dr. Adrian. Generalized anxiety/Major depressive disorder. - According to the family is getting worse with time. Referred patient to therapy. He has an appointment with Dr. Nagel Next month. ADD. -He is stable on Dextroamphetamine ER 5 MG daily[address] Dr. Nagel. Gait instability. -He uses a cane to walk and fall risk discussed.Referred to physical therapy. Fatigue: - Differential diagnoses depression, elevated A1c, thyroid disease, anemia, vitamin D deficiency. Ordered blood work to rule out underlying diseases. Tinea unguium - Referred to podiatry. Probably osteoarthritis of the knees bilateral - Get intraarticular injections in BL knees at [facility]. To follow-up. Screening for osteoporosis: -Order DEXA Screening for colon cancer: - He does not recall when the last time he had it done, he does not result. We ordered guarded based on the results we will evaluate if he needs a colonoscopy or not. Adult Foster [facility]. He uses a cane to walk. He needs help with transferring, showering, toileting, dressing and daily activities like transportation, grocery shopping, laundry, going to medical appointments, picking up prescription and medication supervision. Dental screening. He sees dentist regularly. Vision screening: recommended yearly visits Dentist: recommended regular visits He is up-to-date on vaccinations. Flu vaccine is administered today. Advance directive. He is on full code and his HCP is Cedrick Villanueva. Blood work reviewed with patient and questions answered. 05/06/2024 Complaints of memory disturbance (ICD-10 - R41.3) Mr. Boggs is a 77-year-old [place]-speaking gentleman with attention deficit disorder, hyperlipidemia, DM type II, BPH and sees Dr. Adrian, osteoarthritis, degenerative disc disease here for Medicare annual wellness visit. Plan is as follows: Type II diabetes mellitus with neuropathy. -Last A1c 5.6. He is on right medications. He has not seen his polygraph examiner in the past 1 year. Foot care discussed. - Refilled gabapentin. -EKG was done today which was normal sinus rhythm at [address] with no acute [address] or T wave changes. Normal intervals. First degree AV block. - I will first assess A1c, and based on I will adjust the dosage of metformin. Increased urinary frequency, UA is negative, could be related increase in sugar especially that patient has not been taking Metformin. He is currently on tamsulosin and he has been out of refill from the finasteride. Medication refilled. Hypertension. - Per son and patient he has not taken his lisinopril For a couple of months now as he did not have any refills while he was in [place]. Blood pressure in office is within normal limits. Patient is given a blood pressure monitor if we notice that the blood pressure is elevated then we will Consider resuming on low-dose lisinopril. Advised hydration, reduce salt intake, exercising and weight loss. Check comp Hyperlipidemia. -Last lipid panel within normal limits. Continue Atorvastatin 10 MG at night. Check lipid panel Complaints of memory disturbance. - Memory is declining slowly. Multiple reasons. It can be secondary to vascular dementia Alzheimer's dementia. Brain stimulation exercises recommended. - Recommended follow-up with Dr. Schwartz. Incontinence of urine/BPH. -He uses Depends. Continue current regimen and he sees urology. Recommended follow-up with Dr. Adrian. Generalized anxiety/Major depressive disorder. - According to the family is getting worse with time. Referred patient to therapy. He has an appointment with Dr. Nagel Next month. ADD. -He is stable on Dextroamphetamine ER 5 MG daily[address] by Dr. Nagel. Gait instability. -He uses a cane to walk and fall risk discussed.Referred to physical therapy. Fatigue: - Differential diagnoses depression, elevated A1c, thyroid disease, anemia, vitamin D deficiency. Ordered blood work to rule out underlying diseases. Tinea unguium - Referred to podiatry. Probably osteoarthritis of the knees bilateral - Get intraarticular injections in BL knees at [facility]. To follow-up. Screening for osteoporosis: -Order DEXA Screening for colon cancer: - He does not recall when the last time he had it done, he does not result. We ordered guarded based on the results we will evaluate if he needs a colonoscopy or not. Adult Foster Care. He uses a cane to walk. He needs help with transferring, showering, toileting, dressing and daily activities like transportation, grocery shopping, laundry, going to medical appointments, picking up prescription and medication supervision. Dental screening. He sees dentist regularly. Vision screening: recommended yearly visits Dentist: recommended regular visits He is up-to-date on vaccinations. Flu vaccine is administered today. Advance directive. He is on full code and his HCP is Cedrick Ariasmiles. Blood work reviewed with patient and questions answered. 08/05/2024 Polyosteoarthriti s, unspecified (ICD-10 - M15.9) Mr. Boggs is a 79-year-old [place]ic-speaking gentleman with attention deficit disorder, hyperlipidemia, DM type II, BPH and sees Dr. Adrian, osteoarthritis, degenerative disc disease here for follow-up Plan is as follows: Type II diabetes mellitus with neuropathy. -Last A1c 5.6. He is on right medications. He has not seen his polygraph examiner in the past 1 year. Foot care discussed. - I will first assess A1c, and based on I will adjust the dosage of metformin. Hypertension. - Per son and patient he has not taken his lisinopril For a couple of months now as he did not have any refills while he was in [place]. Blood pressure in office is within normal limits. Patient is given a blood pressure monitor if we notice that the blood pressure is elevated then we will Consider resuming on low-dose lisinopril. Advised hydration, reduce salt intake, exercising and weight loss. Check comp Hyperlipidemia. -Last lipid panel within normal limits. Continue Atorvastatin 10 MG at night. Check lipid panel Complaints of memory disturbance. - Memory is declining slowly. Multiple reasons. It can be secondary to vascular dementia Alzheimer's dementia. Brain stimulation exercises recommended. - Recommended follow-up with Dr. Schwartz. BPH. -He uses diapers. Continue current regimen and he sees urology. Recommended follow-up with Dr. Adrian. ADD. RUMA/MDD -He is stable on Dextroamphetamine ER [address] Dr. Nagel. Gait instability. -He uses a cane to walk.Currently in physical therapy. Fatigue: - Differential diagnoses depression, elevated A1c, thyroid disease, anemia, vitamin D deficiency. Ordered blood work to rule out underlying diseases. 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 Hearing loss: - Referred to ENT for audiology testing. Blood work reviewed with patient and questions answered. 02/10/2025 Complaints of memory disturbance (ICD-10 - R41.3) Mr. Boggs is a 79-year-old [place]-speaking gentleman with attention deficit disorder, hyperlipidemia, DM type II, BPH and sees Dr. Adrian, osteoarthritis, degenerative disc disease here for follow-up. He is here today accompanied by his son who interpret for him. Diabetes mellitus type 2 with diabetic neuropathy. His last A1c was 6.6 and he is not on any medications at this point in time. He has seen polygraph examiner in the past 1 year. His renal function and electrolytes are normal. Foot care discussed with the patient. He is on atorvastatin 20 mg daily. Mixed hyperlipidemia. Continue on atorvastatin 20 mg daily and last lipid panel was within reasonable limits. BPH. He follows up with urologist and he is on finasteride 5 mg daily. Generalized anxiety disorder/depression . He follows with psychiatry currently on Effexor 37.5 mg and he stable. Insomnia. He takes hydroxyzine 25 mg along with prazosin 1 mg. Short-term memory loss. He is on Aricept 5 mg daily which is helping and he stable. Diabetic neuropathy. He is on gabapentin 300 mg and he also takes tramadol when necessary. Osteoarthritis bilateral knee joints. He goes to orthopedics for intra-articular injection. He is not interested in knee replacement at this point in time. 08/05/2024 Unspecified hearing loss, unspecified ear (ICD-10 - H91.90) Mr. Boggs is a 79-year-old [place]ic-speaking gentleman with attention deficit disorder, hyperlipidemia, DM type II, BPH and sees Dr. Adrian, osteoarthritis, degenerative disc disease here for follow-up Plan is as follows: Type II diabetes mellitus with neuropathy. -Last A1c 5.6. He is on right medications. He has not seen his polygraph examiner in the past 1 year. Foot care discussed. - I will first assess A1c, and based on I will adjust the dosage of metformin. Hypertension. - Per son and patient he has not taken his lisinopril For a couple of months now as he did not have any refills while he was in [place]. Blood pressure in office is within normal limits. Patient is given a blood pressure monitor if we notice that the blood pressure is elevated then we will Consider resuming on low-dose lisinopril. Advised hydration, reduce salt intake, exercising and weight loss. Check comp Hyperlipidemia. -Last lipid panel within normal limits. Continue Atorvastatin 10 MG at night. Check lipid panel Complaints of memory disturbance. - Memory is declining slowly. Multiple reasons. It can be secondary to vascular dementia Alzheimer's dementia. Brain stimulation exercises recommended. - Recommended follow-up with Dr. Schwartz. BPH. -He uses diapers. Continue current regimen and he sees urology. Recommended follow-up with Dr. Adrian. ADD. RUMA/MDD -He is stable on Dextroamphetamine ER 5 MG daily[address] Dr. Nagel. Gait instability. -He uses a cane to walk.Currently in physical therapy. Fatigue: - Differential diagnoses depression, elevated A1c, thyroid disease, anemia, vitamin D deficiency. Ordered blood work to rule out underlying diseases. Pending BW Probably osteoarthritis of the knees bilateral - Gets intraarticular injections in BL knees at [facility]. Hearing loss: - Referred to ENT for audiology testing. Blood work reviewed with patient and questions answered. 05/06/2024 Other specified urinary incontinence (ICD-10 - N39.498) Mr. Boggs is a 77-year-old [place]ic-speaking gentleman with attention deficit disorder, hyperlipidemia, DM type II, BPH and sees Dr. Adrian, osteoarthritis, degenerative disc disease here for Medicare annual wellness visit. Plan is as follows: Type II diabetes mellitus with neuropathy. -Last A1c 5.6. He is on right medications. He has not seen his polygraph examiner in the past 1 year. Foot care discussed. - Refilled gabapentin. -EKG was done today which was normal sinus rhythm at [address] with [address] or T wave changes. Normal intervals. First degree AV block. - I will first assess A1c, and based on I will adjust the dosage of metformin. Increased urinary frequency, UA is negative, could be related increase in sugar especially that patient has not been taking Metformin. He is currently on tamsulosin and he has been out of refill from the finasteride. Medication refilled. Hypertension. - Per son and patient he has not taken his lisinopril For a couple of months now as he did not have any refills while he was in [place]. Blood pressure in office is within normal limits. Patient is given a blood pressure monitor if we notice that the blood pressure is elevated then we will Consider resuming on low-dose lisinopril. Advised hydration, reduce salt intake, exercising and weight loss. Check comp Hyperlipidemia. -Last lipid panel within normal limits. Continue Atorvastatin 10 MG at night. Check lipid panel Complaints of memory disturbance. - Memory is declining slowly. Multiple reasons. It can be secondary to vascular dementia Alzheimer's dementia. Brain stimulation exercises recommended. - Recommended follow-up with Dr. Schwartz. Incontinence of urine/BPH. -He uses Depends. Continue current regimen and he sees urology. Recommended follow-up with Dr. Adrian. Generalized anxiety/Major depressive disorder. - According to the family is getting worse with time. Referred patient to therapy. He has an appointment with Dr. Nagel Next month. ADD. -He is stable on Dextroamphetamine ER 5 MG daily[address] by Dr. Nagel. Gait instability. -He uses a cane to walk and fall risk discussed.Referred to physical therapy. Fatigue: - Differential diagnoses depression, elevated A1c, thyroid disease, anemia, vitamin D deficiency. Ordered blood work to rule out underlying diseases. Tinea unguium - Referred to podiatry. Probably osteoarthritis of the knees bilateral - Get intraarticular injections in BL knees at [facility]. To follow-up. Screening for osteoporosis: -Order DEXA Screening for colon cancer: - He does not recall when the last time he had it done, he does not result. We ordered guarded based on the results we will evaluate if he needs a colonoscopy or not. Adult Foster [facility]. He uses a cane to walk. He needs help with transferring, showering, toileting, dressing and daily activities like transportation, grocery shopping, laundry, going to medical appointments, picking up prescription and medication supervision. Dental screening. He sees dentist regularly. Vision screening: recommended yearly visits Dentist: recommended regular visits He is up-to-date on vaccinations. Flu vaccine is administered today. Advance directive. He is on full code and his HCP is Cedrick Villanueva. Blood work reviewed with patient and questions answered. 05/06/2024 Benign prostatic hyperplasia without lower urinary tract symptoms (ICD-10 - N40.0) Mr. Boggs is a 77-year-old [place]-speaking gentleman with attention deficit disorder, hyperlipidemia, DM type II, BPH and sees Dr. Adrian, osteoarthritis, degenerative disc disease here for Medicare annual wellness visit. Plan is as follows: Type II diabetes mellitus with neuropathy. -Last A1c 5.6. He is on right medications. He has not seen his polygraph examiner in the past 1 year. Foot care discussed. - Refilled gabapentin. -EKG was done today which was normal sinus rhythm at [address] with no acute [address] or T wave changes. Normal intervals. First degree AV block. - I will first assess A1c, and based on I will adjust the dosage of metformin. Increased urinary frequency, UA is negative, could be related increase in sugar especially that patient has not been taking Metformin. He is currently on tamsulosin and he has been out of refill from the finasteride. Medication refilled. Hypertension. - Per son and patient he has not taken his lisinopril For a couple of months now as he did not have any refills while he was in [place]. Blood pressure in office is within normal limits. Patient is given a blood pressure monitor if we notice that the blood pressure is elevated then we will Consider resuming on low-dose lisinopril. Advised hydration, reduce salt intake, exercising and weight loss. Check comp Hyperlipidemia. -Last lipid panel within normal limits. Continue Atorvastatin 10 MG at night. Check lipid panel Complaints of memory disturbance. - Memory is declining slowly. Multiple reasons. It can be secondary to vascular dementia Alzheimer's dementia. Brain stimulation exercises recommended. - Recommended follow-up with Dr. Schwartz. Incontinence of urine/BPH. -He uses Depends. Continue current regimen and he sees urology. Recommended follow-up with Dr. Adrian. Generalized anxiety/Major depressive disorder. - According to the family is getting worse with time. Referred patient to therapy. He has an appointment with Dr. Nagel Next month. ADD. -He is stable on Dextroamphetamine ER 5 MG daily[address] by Dr. Nagel. Gait instability. -He uses a cane to walk and fall risk discussed.Referred to physical therapy. Fatigue: - Differential diagnoses depression, elevated A1c, thyroid disease, anemia, vitamin D deficiency. Ordered blood work to rule out underlying diseases. Tinea unguium - Referred to podiatry. Probably osteoarthritis of the knees bilateral - Get intraarticular injections in BL knees at [facility]. To follow-up. Screening for osteoporosis: -Order DEXA Screening for colon cancer: - He does not recall when the last time he had it done, he does not result. We ordered guarded based on the results we will evaluate if he needs a colonoscopy or not. Adult Foster [facility]. He uses a cane to walk. He needs help with transferring, showering, toileting, dressing and daily activities like transportation, grocery shopping, laundry, going to medical appointments, picking up prescription and medication supervision. Dental screening. He sees dentist regularly. Vision screening: recommended yearly visits Dentist: recommended regular visits He is up-to-date on vaccinations. Flu vaccine is administered today. Advance directive. He is on full code and his HCP is Cedrick Villanueva. Blood work reviewed with patient and questions answered. 05/06/2024 Fatigue, unspecified type (ICD-10 - R53.83) Mr. Boggs is a 77-year-old [place]-speaking gentleman with attention deficit disorder, hyperlipidemia, DM type II, BPH and sees Dr. Adrian, osteoarthritis, degenerative disc disease here for Medicare annual wellness visit. Plan is as follows: Type II diabetes mellitus with neuropathy. -Last A1c 5.6. He is on right medications. He has not seen his polygraph examiner in the past 1 year. Foot care discussed. - Refilled gabapentin. -EKG was done today which was normal sinus rhythm at [address] bpm with no acute [address] or T wave changes. Normal intervals. First degree AV block. - I will first assess A1c, and based on I will adjust the dosage of metformin. Increased urinary frequency, UA is negative, could be related increase in sugar especially that patient has not been taking Metformin. He is currently on tamsulosin and he has been out of refill from the finasteride. Medication refilled. Hypertension. - Per son and patient he has not taken his lisinopril For a couple of months now as he did not have any refills while he was in [place]. Blood pressure in office is within normal limits. Patient is given a blood pressure monitor if we notice that the blood pressure is elevated then we will Consider resuming on low-dose lisinopril. Advised hydration, reduce salt intake, exercising and weight loss. Check comp Hyperlipidemia. -Last lipid panel within normal limits. Continue Atorvastatin 10 MG at night. Check lipid panel Complaints of memory disturbance. - Memory is declining slowly. Multiple reasons. It can be secondary to vascular dementia Alzheimer's dementia. Brain stimulation exercises recommended. - Recommended follow-up with Dr. Schwartz. Incontinence of urine/BPH. -He uses Depends. Continue current regimen and he sees urology. Recommended follow-up with Dr. Adrian. Generalized anxiety/Major depressive disorder. - According to the family is getting worse with time. Referred patient to therapy. He has an appointment with Dr. Nagel Next month. ADD. -He is stable on Dextroamphetamine ER 5 MG daily.[address]cribed by Dr. Nagel. Gait instability. -He uses a cane to walk and fall risk discussed.Referred to physical therapy. Fatigue: - Differential diagnoses depression, elevated A1c, thyroid disease, anemia, vitamin D deficiency. Ordered blood work to rule out underlying diseases. Tinea unguium - Referred to podiatry. Probably osteoarthritis of the knees bilateral - Get intraarticular injections in BL knees at [facility]. To follow-up. Screening for osteoporosis: -Order DEXA Screening for colon cancer: - He does not recall when the last time he had it done, he does not result. We ordered guarded based on the results we will evaluate if he needs a colonoscopy or not. Adult [facility]. He uses a cane to walk. He needs help with transferring, showering, toileting, dressing and daily activities like transportation, grocery shopping, laundry, going to medical appointments, picking up prescription and medication supervision. Dental screening. He sees dentist regularly. Vision screening: recommended yearly visits Dentist: recommended regular visits He is up-to-date on vaccinations. Flu vaccine is administered today. Advance directive. He is on full code and his HCP is Cedrick Villanueva. Blood work reviewed with patient and questions answered. 05/06/2024 Tinea allaum (ICD-10 - B35.1) Mr. Boggs is a 77-year-old [place]-speaking gentleman with attention deficit disorder, hyperlipidemia, DM type II, BPH and sees Dr. Adrian, osteoarthritis, degenerative disc disease here for Medicare annual wellness visit. Plan is as follows: Type II diabetes mellitus with neuropathy. -Last A1c 5.6. He is on right medications. He has not seen his polygraph examiner in the past 1 year. Foot care discussed. - Refilled gabapentin. -EKG was done today which was normal sinus rhythm at [address]pm with no acute [address] or T wave changes. Normal intervals. First degree AV block. - I will first assess A1c, and based on I will adjust the dosage of metformin. Increased urinary frequency, UA is negative, could be related increase in sugar especially that patient has not been taking Metformin. He is currently on tamsulosin and he has been out of refill from the finasteride. Medication refilled. Hypertension. - Per son and patient he has not taken his lisinopril For a couple of months now as he did not have any refills while he was in [place]. Blood pressure in office is within normal limits. Patient is given a blood pressure monitor if we notice that the blood pressure is elevated then we will Consider resuming on low-dose lisinopril. Advised hydration, reduce salt intake, exercising and weight loss. Check comp Hyperlipidemia. -Last lipid panel within normal limits. Continue Atorvastatin 10 MG at night. Check lipid panel Complaints of memory disturbance. - Memory is declining slowly. Multiple reasons. It can be secondary to vascular dementia Alzheimer's dementia. Brain stimulation exercises recommended. - Recommended follow-up with Dr. Schwartz. Incontinence of urine/BPH. -He uses Depends. Continue current regimen and he sees urology. Recommended follow-up with Dr. Adrian. Generalized anxiety/Major depressive disorder. - According to the family is getting worse with time. Referred patient to therapy. He has an appointment with Dr. Nagel Next month. ADD. -He is stable on Dextroamphetamine ER 5 MG daily[address] by Dr. Nagel. Gait instability. -He uses a cane to walk and fall risk discussed.Referred to physical therapy. Fatigue: - Differential diagnoses depression, elevated A1c, thyroid disease, anemia, vitamin D deficiency. Ordered blood work to rule out underlying diseases. Tinea unguium - Referred to podiatry. Probably osteoarthritis of the knees bilateral - Get intraarticular injections in BL knees at [facility]. To follow-up. Screening for osteoporosis: -Order DEXA Screening for colon cancer: - He does not recall when the last time he had it done, he does not result. We ordered guarded based on the results we will evaluate if he needs a colonoscopy or not. Adult Foster [facility]. He uses a cane to walk. He needs help with transferring, showering, toileting, dressing and daily activities like transportation, grocery shopping, laundry, going to medical appointments, picking up prescription and medication supervision. Dental screening. He sees dentist regularly. Vision screening: recommended yearly visits Dentist: recommended regular visits He is up-to-date on vaccinations. Flu vaccine is administered today. Advance directive. He is on full code and his HCP is Cedrick Ariasmiles. Blood work reviewed with patient and questions answered. 05/06/2024 Polyosteoarthriti s, unspecified (ICD-10 - M15.9) Mr. Boggs is a 77-year-old [place]-speaking gentleman with attention deficit disorder, hyperlipidemia, DM type II, BPH and sees Dr. Adrian, osteoarthritis, degenerative disc disease here for Medicare annual wellness visit. Plan is as follows: Type II diabetes mellitus with neuropathy. -Last A1c 5.6. He is on right medications. He has not seen his polygraph examiner in the past 1 year. Foot care discussed. - Refilled gabapentin. -EKG was done today which was normal sinus rhythm at [address]pm with no acute [address] or T wave changes. Normal intervals. First degree AV block. - I will first assess A1c, and based on I will adjust the dosage of metformin. Increased urinary frequency, UA is negative, could be related increase in sugar especially that patient has not been taking Metformin. He is currently on tamsulosin and he has been out of refill from the finasteride. Medication refilled. Hypertension. - Per son and patient he has not taken his lisinopril For a couple of months now as he did not have any refills while he was in [place]. Blood pressure in office is within normal limits. Patient is given a blood pressure monitor if we notice that the blood pressure is elevated then we will Consider resuming on low-dose lisinopril. Advised hydration, reduce salt intake, exercising and weight loss. Check comp Hyperlipidemia. -Last lipid panel within normal limits. Continue Atorvastatin 10 MG at night. Check lipid panel Complaints of memory disturbance. - Memory is declining slowly. Multiple reasons. It can be secondary to vascular dementia Alzheimer's dementia. Brain stimulation exercises recommended. - Recommended follow-up with Dr. Schwartz. Incontinence of urine/BPH. -He uses Depends. Continue current regimen and he sees urology. Recommended follow-up with Dr. Adrian. Generalized anxiety/Major depressive disorder. - According to the family is getting worse with time. Referred patient to therapy. He has an appointment with Dr. Nagel Next month. ADD. -He is stable on Dextroamphetamine ER 5 MG daily[address]cribed by Dr. Nagel. Gait instability. -He uses a cane to walk and fall risk discussed.Referred to physical therapy. Fatigue: - Differential diagnoses depression, elevated A1c, thyroid disease, anemia, vitamin D deficiency. Ordered blood work to rule out underlying diseases. Tinea unguium - Referred to podiatry. Probably osteoarthritis of the knees bilateral - Get intraarticular injections in BL knees at [facility]. To follow-up. Screening for osteoporosis: -Order DEXA Screening for colon cancer: - He does not recall when the last time he had it done, he does not result. We ordered guarded based on the results we will evaluate if he needs a colonoscopy or not. Adult [facility]. He uses a cane to walk. He needs help with transferring, showering, toileting, dressing and daily activities like transportation, grocery shopping, laundry, going to medical appointments, picking up prescription and medication supervision. Dental screening. He sees dentist regularly. Vision screening: recommended yearly visits Dentist: recommended regular visits He is up-to-date on vaccinations. Flu vaccine is administered today. Advance directive. He is on full code and his HCP is Cedrick Villanueva. Blood work reviewed with patient and questions answered. 05/06/2024 Encounter for immunization (ICD-10 - Z23) Mr. Boggs is a 77-year-old [place]-speaking gentleman with attention deficit disorder, hyperlipidemia, DM type II, BPH and sees Dr. Adrian, osteoarthritis, degenerative disc disease here for Medicare annual wellness visit. Plan is as follows: Type II diabetes mellitus with neuropathy. -Last A1c 5.6. He is on right medications. He has not seen his polygraph examiner in the past 1 year. Foot care discussed. - Refilled gabapentin. -EKG was done today which was normal sinus rhythm at [address] with no acute [address] or T wave changes. Normal intervals. First degree AV block. - I will first assess A1c, and based on I will adjust the dosage of metformin. Increased urinary frequency, UA is negative, could be related increase in sugar especially that patient has not been taking Metformin. He is currently on tamsulosin and he has been out of refill from the finasteride. Medication refilled. Hypertension. - Per son and patient he has not taken his lisinopril For a couple of months now as he did not have any refills while he was in [place]. Blood pressure in office is within normal limits. Patient is given a blood pressure monitor if we notice that the blood pressure is elevated then we will Consider resuming on low-dose lisinopril. Advised hydration, reduce salt intake, exercising and weight loss. Check comp Hyperlipidemia. -Last lipid panel within normal limits. Continue Atorvastatin 10 MG at night. Check lipid panel Complaints of memory disturbance. - Memory is declining slowly. Multiple reasons. It can be secondary to vascular dementia Alzheimer's dementia. Brain stimulation exercises recommended. - Recommended follow-up with Dr. Schwartz. Incontinence of urine/BPH. -He uses Depends. Continue current regimen and he sees urology. Recommended follow-up with Dr. Adrian. Generalized anxiety/Major depressive disorder. - According to the family is getting worse with time. Referred patient to therapy. He has an appointment with Dr. Nagel Next month. ADD. -He is stable on Dextroamphetamine ER [address] Nagel. Gait instability. -He uses a cane to walk and fall risk discussed.Referred to physical therapy. Fatigue: - Differential diagnoses depression, elevated A1c, thyroid disease, anemia, vitamin D deficiency. Ordered blood work to rule out underlying diseases. Tinea unguium - Referred to podiatry. Probably osteoarthritis of the knees bilateral - Get intraarticular injections in BL knees at [facility]. To follow-up. Screening for osteoporosis: -Order DEXA Screening for colon cancer: - He does not recall when the last time he had it done, he does not result. We ordered guarded based on the results we will evaluate if he needs a colonoscopy or not. Adult [facility]. He uses a cane to walk. He needs help with transferring, showering, toileting, dressing and daily activities like transportation, grocery shopping, laundry, going to medical appointments, picking up prescription and medication supervision. Dental screening. He sees dentist regularly. Vision screening: recommended yearly visits Dentist: recommended regular visits He is up-to-date on vaccinations. Flu vaccine is administered today. Advance directive. He is on full code and his HCP is Cedrick Kay. Blood work reviewed with patient and questions answered. 05/06/2024 Encounter for screening for osteoporosis (ICD-10 - Z13.820) Mr. Boggs is a 77-year-old [place]ic-speaking gentleman with attention deficit disorder, hyperlipidemia, DM type II, BPH and sees Dr. Adrian, osteoarthritis, degenerative disc disease here for Medicare annual wellness visit. Plan is as follows: Type II diabetes mellitus with neuropathy. -Last A1c 5.6. He is on right medications. He has not seen his polygraph examiner in the past 1 year. Foot care discussed. - Refilled gabapentin. -EKG was done today which was normal sinus rhythm at [address] with no acute [address] or T wave changes. Normal intervals. First degree AV block. - I will first assess A1c, and based on I will adjust the dosage of metformin. Increased urinary frequency, UA is negative, could be related increase in sugar especially that patient has not been taking Metformin. He is currently on tamsulosin and he has been out of refill from the finasteride. Medication refilled. Hypertension. - Per son and patient he has not taken his lisinopril For a couple of months now as he did not have any refills while he was in [place]. Blood pressure in office is within normal limits. Patient is given a blood pressure monitor if we notice that the blood pressure is elevated then we will Consider resuming on low-dose lisinopril. Advised hydration, reduce salt intake, exercising and weight loss. Check comp Hyperlipidemia. -Last lipid panel within normal limits. Continue Atorvastatin 10 MG at night. Check lipid panel Complaints of memory disturbance. - Memory is declining slowly. Multiple reasons. It can be secondary to vascular dementia Alzheimer's dementia. Brain stimulation exercises recommended. - Recommended follow-up with Dr. Schwartz. Incontinence of urine/BPH. -He uses Depends. Continue current regimen and he sees urology. Recommended follow-up with Dr. Adrian. Generalized anxiety/Major depressive disorder. - According to the family is getting worse with time. Referred patient to therapy. He has an appointment with Dr. Nagel Next month. ADD. -He is stable on Dextroamphetamine ER 5 MG daily[address] by Dr. Nagel. Gait instability. -He uses a cane to walk and fall risk discussed.Referred to physical therapy. Fatigue: - Differential diagnoses depression, elevated A1c, thyroid disease, anemia, vitamin D deficiency. Ordered blood work to rule out underlying diseases. Tinea unguium - Referred to podiatry. Probably osteoarthritis of the knees bilateral - Get intraarticular injections in BL knees at [facility]. To follow-up. Screening for osteoporosis: -Order DEXA Screening for colon cancer: - He does not recall when the last time he had it done, he does not result. We ordered guarded based on the results we will evaluate if he needs a colonoscopy or not. Adult Foster [facility]. He uses a cane to walk. He needs help with transferring, showering, toileting, dressing and daily activities like transportation, grocery shopping, laundry, going to medical appointments, picking up prescription and medication supervision. Dental screening. He sees dentist regularly. Vision screening: recommended yearly visits Dentist: recommended regular visits He is up-to-date on vaccinations. Flu vaccine is administered today. Advance directive. He is on full code and his HCP is Cedrick Villanueva. Blood work reviewed with patient and questions answered. 05/06/2024 Encounter for screening for malignant neoplasm of colon (ICD-10 - Z12.11) Mr. Boggs is a 77-year-old [place]ic-speaking gentleman with attention deficit disorder, hyperlipidemia, DM type II, BPH and sees Dr. Adrian, osteoarthritis, degenerative disc disease here for Medicare annual wellness visit. Plan is as follows: Type II diabetes mellitus with neuropathy. -Last A1c 5.6. He is on right medications. He has not seen his polygraph examiner in the past 1 year. Foot care discussed. - Refilled gabapentin. -EKG was done today which was normal sinus rhythm at [address]pm with no acute ST or T wave changes. Normal intervals. First degree AV block. - I will first assess A1c, and based on I will adjust the dosage of metformin. Increased urinary frequency, UA is negative, could be related increase in sugar especially that patient has not been taking Metformin. He is currently on tamsulosin and he has been out of refill from the finasteride. Medication refilled. Hypertension. - Per son and patient he has not taken his lisinopril For a couple of months now as he did not have any refills while he was in [place]. Blood pressure in office is within normal limits. Patient is given a blood pressure monitor if we notice that the blood pressure is elevated then we will Consider resuming on low-dose lisinopril. Advised hydration, reduce salt intake, exercising and weight loss. Check comp Hyperlipidemia. -Last lipid panel within normal limits. Continue Atorvastatin 10 MG at night. Check lipid panel Complaints of memory disturbance. - Memory is declining slowly. Multiple reasons. It can be secondary to vascular dementia Alzheimer's dementia. Brain stimulation exercises recommended. - Recommended follow-up with Dr. Schwartz. Incontinence of urine/BPH. -He uses Depends. Continue current regimen and he sees urology. Recommended follow-up with Dr. Adrian. Generalized anxiety/Major depressive disorder. - According to the family is getting worse with time. Referred patient to therapy. He has an appointment with Dr. Nagel Next month. ADD. -He is stable on Dextroamphetamine ER [address] MG [address] Dr. Nagel. Gait instability. -He uses a cane to walk and fall risk discussed.Referred to physical therapy. Fatigue: - Differential diagnoses depression, elevated A1c, thyroid disease, anemia, vitamin D deficiency. Ordered blood work to rule out underlying diseases. Tinea unguium - Referred to podiatry. Probably osteoarthritis of the knees bilateral - Get intraarticular injections in BL knees at [facility]. To follow-up. Screening for osteoporosis: -Order DEXA Screening for colon cancer: - He does not recall when the last time he had it done, he does not result. We ordered guarded based on the results we will evaluate if he needs a colonoscopy or not. Adult Foster [facility]. He uses a cane to walk. He needs help with transferring, showering, toileting, dressing and daily activities like transportation, grocery shopping, laundry, going to medical appointments, picking up prescription and medication supervision. Dental screening. He sees dentist regularly. Vision screening: recommended yearly visits Dentist: recommended regular visits He is up-to-date on vaccinations. Flu vaccine is administered today. Advance directive. He is on full code and his HCP is Cedrick Villanueva. Blood work reviewed with patient and questions answered. Plan Of Treatment Pending Test Test Name Order Date X ray : Spines, thoracic spine 9 DEXA 05/06/2024 Cologuard 05/06/2024 Hemoglobin [id number] 08/05/2024 Hemoglobin [id number] 05/06/2024 Vitamin D, [id number] 05/06/2024 CBC/Differential (No Platelet)-[id number] Albumin/Creatinine Ratio,Urine-[id number] Albumin/Creatinine Ratio,Urine-[id number] TSH+Free [id number] 05/06/2024 Lipid Panel-[id number] 08/05/2024 Lipid Panel-[id number] 08/17/2024 Comp. Metabolic Panel [id number] 2024 Comp. Metabolic Panel [id number] 2023 Next Appt Details Provider Name:ALLEN GRAHAM , 06/13/2025 11:00:00 AM, [address] [place] [address], [place], [id number], Insurance Providers Payer Name Payer Address Payer Phone Subscriber Number Group Number Insured Name Patient Relationship to Insured Coverage Start Date Coverage End Date Medicare [address] [place] [phone] [id number] Taylor Boggs Self - patient is the insured [employer] [place] [employer] [address] [place] [address] [id number] Taylor Boggs Self - patient is the insured Medical (General) History Medical History History ICD Code hyperlipidemia Attention deficit disorder see Dr Gillis er BPH see Urologist Osteoarthritis And see [facility] Hearing loss and uses hearing aids Dementia- see Dr Pro Surgical History Surgery Date(Month/Year) prostatectomy [place] [facility] 2006 Hospitalization History Reason Date(Month/Year)
== END 2025-05-04 16:16 | disposition home or self-care (01) ==
LOC: HO.HSM 15:52
PROVIDERS: PCP Hospitalist; Referring Provider Hospitalist; Visit Provider Psychiatry & Neurology Neurology
DX: G30.9 Alzheimer's disease, unspecified (principal); F02.80 Dementia in other diseases classified elsewhere, unspecified severity, without behavioral disturbance, psychotic disturbance, mood disturbance, and anxiety; I10 Essential (primary) hypertension
CPT/HCPCS: 99214

== ENCOUNTER → 2025-05-04 15:51 | Outpatient (BNVA) | payer MEDICARE, MEDICAID, SELFPAY | PROVIDERS: PCP Hospitalist; Referring Provider Hospitalist; Visit Provider Psychiatry & Neurology Neurology | DX: G30.9 Alzheimer's disease, unspecified (principal); F02.80 Dementia in other diseases classified elsewhere, unspecified severity, without behavioral disturbance, psychotic disturbance, mood disturbance, and anxiety; I10 Essential (primary) hypertension | CPT/HCPCS: 99212 ==